=== PATIENT | female | born 1935 | race Caucasian/White ===

== ENCOUNTER → 2017-12-18 | Outpatient (CLI) | payer MEDICARE ==
[~2017-12-18] MED LIST: AMLO10TA2 PO; ASPI-1026 PO; ATOR40TA71 PO; CYAN250014 PO; HYDR25TA PO; IOPAMIDOL-370 100 ML VIAL IV ONE; LEVO50TA11 PO; METO-409 PO; MULT-264 PO
== END | disposition home or self-care (01) ==
LOC: RAH 09:23
PROVIDERS: ATTEND Family Medicine
DX: I71.2 Thoracic aortic aneurysm, without rupture (principal)
CPT/HCPCS: 71275; Q9967

== ENCOUNTER 2018-04-14 06:18 | Inpatient (IN) | payer MEDICARE ==
[~2018-04-14] VITALS: Ht 165.1 cm; Wt 68.1 kg
[2018-04-14 06:58] LABS: BASOPHILS % (AUTO) 0.6 % (0.0-5.0); EOSINOPHILS % (AUTO) 3.7 % (0.0-8.0); HEMATOCRIT 41.2 % (36-48); LYMPHOCYTES % (AUTO) 24.9 % (21.0-51.0); MEAN CORPUSCULAR HEMOGLOBIN 32.8 pg (27.0-33.0); MEAN CORPUSCULAR HGB CONC 34.6 g/dL (32.0-36.0); MEAN CORPUSCULAR VOLUME 94.8 fL (79-99); MONOCYTES % (AUTO) 9.3 % (3.0-13.0); NEUTROPHILS % (AUTO) 61.5 % (40.0-77.0); NUCLEATED RED BLOOD CELLS 0.1 % (0.0-0.19); PLATELET COUNT (AUTO) 218 K/uL (130-400); RED BLOOD CELL COUNT(AUTO) 4.34 MIL/uL (4.00-5.50); RED CELL DISTRIBUTION WIDTH 13.3 % (11.0-15.5); WHITE BLOOD COUNT (AUTO) 8.1 K/uL (4.8-10.8)
[2018-04-14 07:07] LABS: CREATININE 0.8 mg/dL (0.5-1.5); POTASSIUM 3.2 mmol/L (3.5-5.1)
[2018-04-14 07:16] LABS: INR 0.92 (0.85-1.15); PARTIAL THROMBOPLASTIN TIME 25.9 SEC (26.3-35.5); PROTHROMBIN TIME 9.7 SEC (9.6-11.6)
[2018-04-14 07:22] LABS: ALBUMIN 3.7 g/dL (3.5-5.0); BILIRUBIN,TOTAL 0.9 mg/dL (0.2-1.0); CREATINE KINASE MB 0.5 ng/mL (0.5-3.6); TOTAL PROTEIN, SERUM 7.9 g/dL (6.0-8.3)
[2018-04-14 09:04] LABS: APPEARANCE,URINE CLEAR (CLEAR); BILIRUBIN,URINE NEGATIVE (NEGATIVE); GLUCOSE, URINE (UA) NEGATIVE (NEGATIVE); KETONES,URINE NEGATIVE (NEGATIVE); LEUKOCYTE ESTERASE ,URINE SMALL (NEGATIVE); NITRATE,URINE NEGATIVE (NEGATIVE); OCCULT BLOOD,URINE NEGATIVE (NEGATIVE); PH,URINE 7.5 (5.0-8.0); PROTEIN,URINE NEGATIVE (NEGATIVE); UROBILINOGEN,URINE 0.2 mg/dL (0.2-1.0)
[2018-04-14 09:13] LABS: AMPHET/METH SCREEN,URINE NEGATIVE (NEGATIVE); BARBITURATE SCREEN, URINE NEGATIVE (NEGATIVE); BENZODIAZEPINES SCREEN,URINE NEGATIVE (NEGATIVE); CANNABINOID SCREEN,URINE NEGATIVE (NEGATIVE); COCAINE SCREEN,URINE NEGATIVE (NEGATIVE); OPIATE SCREEN,URINE NEGATIVE (NEGATIVE); PHENCYCLIDINE SCREEN,URINE NEGATIVE (NEGATIVE)
[2018-04-14 09:30] LABS: COLOR,URINE STRAW (YELLOW)
[2018-04-14 09:31] LABS: BACTERIA,URINE Few /HPF (None Seen); RBC,URINE None Seen /HPF (0-1); SQUAMOUS EPITHELIAL CELL,UR Rare /HPF (0-2); WBC,URINE 0-1 /HPF (0-1)
[2018-04-14] MEDS ORDERED: ASPIRIN 325 MG TABLET ONE (10:38)
[2018-04-14 11:17] VITALS: BP 125/67
[2018-04-14] MEDS ORDERED: SODIUM CHLORIDE 0.9% 10 ML VIAL IVP PRN (11:30)
[2018-04-14] MEDS ORDERED: METO-409 PO (11:50)
[2018-04-14] MEDS ORDERED: CYAN250014 PO (11:50)
[2018-04-14] MEDS ORDERED: MULT-264 PO (11:50)
[2018-04-14] MEDS ORDERED: HYDR25TA PO (11:50)
[2018-04-14] MEDS ORDERED: LEVO50TA11 PO (11:50)
[2018-04-14] MEDS ORDERED: AMLO10TA2 PO (11:50)
[2018-04-14] MEDS ORDERED: ATOR40TA71 PO (11:50)
[2018-04-14 16:24] VITALS: BP 105/66
[2018-04-14 19:40] VITALS: BP 133/76
[2018-04-14] MEDS ORDERED: ATORVASTATIN CALCIUM 40 MG TABLET PO SCH (21:00)
[2018-04-14] MEDS: MULTIVITAMIN TABLET PO SCH (21:32)
[2018-04-14 23:43] VITALS: BP 139/76
[2018-04-15 03:30] VITALS: BP 101/61
[2018-04-15] MEDS ORDERED: LEVOTHYROXINE 50 MCG TABLET PO SCH (06:30)
[2018-04-15] MEDS ORDERED: POTASSIUM CHLORIDE 20 MEQ ERTAB PO PRN (07:30)
[2018-04-15] MEDS ORDERED: LIDOCAINE HCL-MPF 1% 2ML VIAL IVP PRN (07:30)
[2018-04-15] MEDS ORDERED: POTASSIUM CHLORIDE 10% ELIXIR 20 MEQ/15 ML UDCUP PO PRN (07:30)
[2018-04-15] MEDS ORDERED: POTASSIUM CHLORIDE 20MEQ/100ML 100 ML IV PRN (07:30)
[2018-04-15] MEDS: MULTIVITAMIN TABLET PO SCH (07:47)
[2018-04-15 07:52] VITALS: BP 136/79
[2018-04-15] MEDS ORDERED: CYANOCOBALAMIN (VITAMIN B-12) 1,000 MCG TABLET PO SCH (09:00)
[2018-04-15] MEDS ORDERED: ASPIRIN 325 MG TABLET PO SCH (09:00)
[2018-04-15] MEDS ORDERED: ASPI-1026 PO (11:40)
[2018-04-15 11:47] VITALS: BP 113/82
== END 2018-04-15 13:40 | disposition home or self-care (01) | DRG 69 ==
LOC: EDH 06:18 → EDHIP 08:40 → 2DH 11:15
PROVIDERS: ADMIT Family Medicine; ATTEND Family Medicine
DX: G45.9 Transient cerebral ischemic attack, unspecified (principal); E03.9 Hypothyroidism, unspecified; E78.5 Hyperlipidemia, unspecified; I10 Essential (primary) hypertension; Z90.710 Acquired absence of both cervix and uterus
CPT/HCPCS: 36415; 70450; 70547; 70551; 71045; 80053; 80305; 81001; 82550; 82553; 82948; 83874; 84484; 85025; 85610; 85730; 93005; 93306; 93880

== ENCOUNTER 2018-08-20 05:45 | Emergency (ER) | payer MEDICARE ==
[~2018-08-20 05:45] MED LIST changes: -AMLO10TA2 PO; +AMLO10TA6 PO; -IOPAMIDOL-370 100 ML VIAL IV ONE
[2018-08-20 06:23] LABS: BASOPHILS % (AUTO) 0.6 % (0.0-5.0); EOSINOPHILS % (AUTO) 6.2 % (0.0-8.0); HEMATOCRIT 40.7 % (36-48); MEAN CORPUSCULAR HGB CONC 34.1 g/dL (32.0-36.0); MEAN CORPUSCULAR VOLUME 96.9 fL (79-99); MONOCYTES % (AUTO) 10.2 % (3.0-13.0); PLATELET COUNT (AUTO) 244 K/uL (130-400); RED CELL DISTRIBUTION WIDTH 13.1 % (11.0-15.5)
[2018-08-20 06:31] LABS: POTASSIUM 3.1 mmol/L (3.5-5.1)
[2018-08-20] MEDS ORDERED: POTASSIUM BICARB/CIT AC 25 MEQ TABLET.EFF ONE (06:59)
== END 2018-08-20 07:50 | disposition home or self-care (01) ==
LOC: EDH 05:45
DX: R51 Headache (principal); I10 Essential (primary) hypertension; E07.9 Disorder of thyroid, unspecified; Z86.73 Personal history of transient ischemic attack (TIA), and cerebral infarction without residual deficits
CPT/HCPCS: 36415; 70450; 80048; 85025